=== PATIENT | male | born 1965 | race American Indian/Alaskan Native ===

== ENCOUNTER 2018-09-14 13:29 | Day surgery (SDC) | payer BC ==
[2018-09-14] MEDS ORDERED: PEPCID IV NR (14:10)
--- NOTE | 2018-09-14 14:10 | Anesthesia Day of Surgery ---
Anesthesia Day of Surgery - Day of Surgery Patient Examined: Yes Patient H&P Reviewed: Yes Patient is NPO: Yes
--- NOTE | 2018-09-14 14:10 | Anesthesia Consultation ---
Anesthesia Consult and Med Hx Date of service: 09/14/18 - Airway Anesthetic Teeth Evaluation: Good ROM Head & Neck: Adequate Mental/Hyoid Distance: Adequate Mallampati Class: Class II Intubation Access Assessment: Good - Pulmonary Exam CTA: Yes - Cardiac Exam Cardiac Exam: No Murmur - Pre-Operative Health Status ASA Pre-Surgery Classification: ASA1 Proposed Anesthetic Plan: General
[2018-09-14] MEDS ORDERED: LACTATED RINGERS 1,000 ML IV SCH (14:11)
[2018-09-14] MEDS ORDERED: ANCEF/STERILE WATER 2 GM/20 ML IV NR (14:21)
[2018-09-14] MEDS ORDERED: VERSED IV NR (15:00)
[2018-09-14] MEDS ORDERED: ZOFRAN ONE (18:07)
[2018-09-14] MEDS ORDERED: DIPRIVAN 10 MG/ML IV ONE (18:07)
[2018-09-14] MEDS ORDERED: DECADRON ONE (18:07)
[2018-09-14] MEDS ORDERED: XYLOCAINE MPF 2% ONE (18:07)
[2018-09-14] MEDS ORDERED: DILAUDID ONE (19:12)
[2018-09-14] MEDS ORDERED: OMNIPAQUE 300 MG/50 ML (CATH LAB) IV ONE (19:19)
--- NOTE | 2018-09-14 19:51 | Short Stay Summary ---
Short Stay Documentation Date of service: 09/14/18 - History H&P: obtained from office - Allergies and Medications Current Medications: Allergies No Known Allergies Allergy (Unverified 09/14/18 14:09) Active Medications Cefazolin Sodium (Ancef/Sterile Water 2 Gm/20 Ml) 2 gm IV PREOP NR Stop: 09/14/18 23:59 Famotidine (Pepcid) 20 mg IV PREOP NR Stop: 09/14/18 23:59 Last Admin: 09/14/18 14:46 Dose: 20 mg Documented by: Lactated Ringer's (Lactated Ringers) 1,000 mls @ 75 mls/hr IV DIRECT BO Stop: 09/14/18 23:59 Midazolam HCl (Versed) 2 mg IV PREOP NR Stop: 09/14/18 23:59 Last Admin: 09/14/18 14:50 Dose: 2 mg Documented by: - Brief post op/procedure progress note Date of procedure: 09/14/18 Pre-op diagnosis: rt distal stone x 2 Post-op diagnosis: same Procedure: cysto, ureteroscopy stone extraction x 2 - stent with external string Anesthesia: GETA Surgeon: CRIS TIPTON Estimated blood loss: none Pathology: none Condition: stable - Hospital course Hospital course: post op info, norco, cipro on chart give pt stone, appt next wk - Disposition Condition at discharge: Stable Disposition: DC-01 TO HOME OR SELFCARE Short Stay Discharge Plan Follow up with: MIMI DORADO MD [Primary Care Provider] - 7 Days
--- NOTE | 2018-09-14 21:03 | Operative Report ---
PREOPERATIVE DIAGNOSIS: Right distal ureteral calculi (2). POSTOPERATIVE DIAGNOSES: Right distal ureteral calculi (2). PROCEDURE: Cystoscopy, bilateral retrograde pyelograms, right rigid ureteroscopy, basket stone extraction x 2, double-J stent (6-English 24 cm with an external string). SURGEON: Avinash Medina MD ANESTHESIA: General. ESTIMATED BLOOD LOSS: Minimal. FLUIDS: Crystalloid. COMPLICATIONS: No complications. INDICATIONS: This patient is a 53-year-old male with a long history of stones, presented to the office with right flank pain. CT of abdomen and pelvis revealed a 5 mm and a 6 mm right distal stone. He also had some renal stones. The patient has a long history of urolithiasis with 9 surgeries in the past. PRIMARY CARE PHYSICIAN: Dr. Matias Mantilla. Risks, benefits, and complications were explained. The patient agreed to proceed with surgical intervention. DESCRIPTION OF PROCEDURE: The patient was taken to the operative suite, placed in a supine position. After adequate general anesthesia, placed in a dorsal lithotomy position, prepped and draped in a sterile fashion. Pancystourethroscopy was performed with 22-English Storz cystoscope, no urethral abnormalities. His prostate is minimally obstructing. Bladder, no tumors or stones were noted. Bilateral retrograde pyelograms were obtained with an 8 English [place] catheter and 8 mL of contrast. No filling defects or obstruction on the left. The right side, obvious filling defects in the distal ureter. Two 0.035 Glidewires were placed in the right ureter under fluoroscopic guidance. Rigid ureteroscopy was performed. Stones could be appreciated. Both were extracted with a 3-English [place] basket. Ureteroscopy up to the renal pelvis, no other stones could be appreciated. A 6-English 24 cm double-J stent with an external string was left indwelling. His bladder was drained. Rectal exam was benign. He was extubated and taken to recovery room in stable condition. He will go home on Cipro and [place]. JOB# [id number] [facility]
[2018-09-14 21:09] VITALS: BP 126/70
--- NOTE | 2018-09-15 08:00 | Fluoroscopy Report ---
FLUOROSCOPY RETROGRADE UROGRAPHY: HISTORY: Right ureteral calculus. FINDINGS: Fluoroscopy was provided by radiology during retrograde urography by the urologist. 6 fluoroscopic images were captured. The images demonstrate 2 filling defects in the distal right ureter consistent with mildly obstructing ureteral stones. Per the operative notes, right ureteroscopy with stone basket extraction was performed. Balloon dilatation of the distal right ureter was also performed. A double-J right ureteral stent was placed which adequately drains the right collecting system on the final image. The left retrograde pyelogram is normal. IMPRESSION: Right ureteral stone removal. Right ureteral stent placement.
== END 2018-09-14 13:30 | disposition home or self-care (01) ==
LOC: OR 13:29
PROVIDERS: ATTEND Urology
DX: N20.2 Calculus of kidney with calculus of ureter (principal); I10 Essential (primary) hypertension; Z79.899 Other long term (current) drug therapy; Z71.3 Dietary counseling and surveillance
CPT/HCPCS: 52332; 52352; 74420; C1758; C1769; C2617; J0690; J1100; J1170; J2250; J2405; J2704; J7120; Q9967